=== PATIENT | female | born 1990 | race Caucasian/White ===

== ENCOUNTER 2017-07-10 16:34 | Emergency (ER) | payer OTHER ==
[~2017-07-10] VITALS: Ht 175.3 cm; Wt 100.0 kg
[~2017-07-10 16:34] MED LIST: /METO25TAB PO; ABIL2TAB OR; ATIV2TAB PO; BACL10TA2 PO; BENGAY EXT; CELEXA PO; CLOM50TA2 PO; CONC18TA OR; DICL50TAB PO; GABA-282 PO; HYDR7.5T38 PO; LEVO200T4 PO; LYRI75CA PO; MULTCAP11 PO; NAPR500T OR; NUCY50TA PO; OMEP20CA3 PO; ORTHOTRICYCLINE PO; PERCOCET PO; PHENTERMINE OR; PRENTAB PO; PROZ10CA OR; PROZ10CA7 PO; PROZ20CA11 PO; PROZ40CA PO; SOMA350T PO; SYNT150T PO; TOPA25TA PO; TRAM50TA2 OR; VOLT1GEL EX; XANA0.5T PO; birth control pill PO
[2017-07-10 16:35] VITALS: BP 126/72
[2017-07-10] MEDS ORDERED: PRENTAB29 PO (16:44)
[2017-07-10] MEDS ORDERED: SUCR1TAB56 PO (16:44)
[2017-07-10] MEDS ORDERED: PANT40TA2 PO (16:44)
[2017-07-10] MEDS ORDERED: SERT-138 PO (16:44)
[2017-07-10] MEDS ORDERED: TRAZ50TA11 PO (16:44)
[2017-07-10] MEDS ORDERED: FERR1TAB8 PO (16:44)
[2017-07-10] MEDS ORDERED: LEVO175T2 PO (16:44)
[2017-07-10] MEDS ORDERED: BUSP10TA PO (16:44)
== END 2017-07-10 18:21 | disposition left against medical advice (07) ==
LOC: M ED 16:34
DX: R51 Headache (principal); Z53.21 Procedure and treatment not carried out due to patient leaving prior to being seen by health care provider

== ENCOUNTER → 2017-09-29 | Outpatient (CLI) | payer OTHER | LOC: M RAD 14:49 | DX: R51 Headache (principal); R42 Dizziness and giddiness; H53.9 Unspecified visual disturbance | CPT/HCPCS: 70551 ==

== ENCOUNTER 2017-10-10 21:27 | Emergency (ER) | payer OTHER ==
[2017-10-10] MEDS: NS 1,000 ML IV (23:04)
[2017-10-10] MEDS: diphenhydrAMINE INJ 50MG/ML VIAL (J1200) IV (23:04)
[2017-10-10] MEDS: METOCLOPRAMIDE INJ 10MG/2ML VIAL (J2765) IV (23:04)
[2017-10-10] MEDS: KETOROLAC 30 MG/ML VIAL (J1885) IV (23:04)
== END 2017-10-11 01:27 | disposition home or self-care (01) ==
LOC: M ED 10-11 01:27
DX: G43.909 Migraine, unspecified, not intractable, without status migrainosus (principal); E03.9 Hypothyroidism, unspecified; K21.9 Gastro-esophageal reflux disease without esophagitis; F43.12 Post-traumatic stress disorder, chronic; Z98.84 Bariatric surgery status
CPT/HCPCS: J1200

== ENCOUNTER 2019-07-27 20:01 | Emergency (ER) | payer BC, OTHER ==
[~2019-07-27] VITALS: Ht 172.7 cm; Wt 97.9 kg
[~2019-07-27 20:01] MED LIST changes: -/METO25TAB PO; +BUSP10TA PO; +FERR1TAB8 PO; -GABA-282 PO; +GABA-843 PO; +LEVO175T2 PO; +METO1TAB87 PO; +PANT40TA3 PO; +PRENTAB29 PO; +SERT-138 PO; +SUCR1TAB56 PO; +TOPA50TA8 PO; +TRAZ-252 PO
[2019-07-27 21:06] LABS: BASO # 0.1 10^3/uL (0.0-0.2); BASO % 0.7 % (0.0-1.0); EOS % 0.3 % (0.0-3.0); HEMATOCRIT 36.1 % (36.0-47.0); HEMOGLOBIN 10.1 g/dl (12.0-15.5); LYMPH # 0.4 10^3/uL (1.5-5.0); LYMPH % 5.2 % (24.0-44.0); MEAN CORPUSCULAR HEMOGLOBIN 20.7 pg (27.0-33.0); MONO % 0.4 % (0.0-5.0); NEUTROPHILS # 6.2 10^3/uL (1.5-8.5); PLATELET COUNT, AUTOMATED 257 10^3/uL (150-450); RED BLOOD COUNT 4.88 10^6/uL (4.00-5.40); WHITE BLOOD COUNT 6.7 10^3/uL (4.0-10.0)
[2019-07-27] MEDS ORDERED: NS 1,000 ML IV ONE (21:30)
[2019-07-27 21:31] LABS: BLOOD UREA NITROGEN 8 MG/DL (7-18); CALCIUM LEVEL 8.7 MG/DL (8.5-10.1); CARBON DIOXIDE LEVEL 19 MEQ/L (21-32); CHLORIDE LEVEL 114 MEQ/L (98-107); CREATININE FOR GFR 0.94 MG/DL (0.55-1.30); GLOMERULAR FILTRATION RATE > 60.0 (>60); GLUCOSE, FASTING 158 MG/DL (70-100); SODIUM LEVEL 141 MEQ/L (136-145)
[2019-07-27] MEDS ORDERED: diphenhydrAMINE INJ 50MG/ML VIAL (J1200) IV STA (22:10)
[2019-07-27] MEDS ORDERED: ONDANSETRON 4MG/2ML VIAL (J2405) IV ONE (22:15)
[2019-07-27] MEDS ORDERED: ACETAMINOPHEN 500 MG TAB PO ONE (22:15)
[2019-07-27] MEDS ORDERED: KETOROLAC 30 MG/ML VIAL (J1885) IV ONE (22:15)
[2019-07-27 23:15] VITALS: BP 120/69
[2019-07-27] MEDS ORDERED: HYDROMORPHONE HCL 0.5 MG/ 0.5 ML SYRINGE (J1170 PER 1) IV ONE (23:15)
== END 2019-07-27 23:40 | disposition home or self-care (01) ==
LOC: M ED 20:01
DX: G43.909 Migraine, unspecified, not intractable, without status migrainosus (principal); E03.9 Hypothyroidism, unspecified; K21.9 Gastro-esophageal reflux disease without esophagitis; J30.9 Allergic rhinitis, unspecified; Z98.84 Bariatric surgery status; Z87.891 Personal history of nicotine dependence; Z79.899 Other long term (current) drug therapy; Z88.8 Allergy status to other drugs, medicaments and biological substances; Z88.6 Allergy status to analgesic agent; Z88.5 Allergy status to narcotic agent
CPT/HCPCS: 80048; 85025; 86850; 86900; 86901; 96361; 96374; 96375; 99285; J1170; J1200; J1885; J2405

== ENCOUNTER 2019-11-12 13:00 | Emergency (ER) | payer BC ==
[~2019-11-12] VITALS: Ht 175.3 cm; Wt 104.3 kg
[2019-11-12] MEDS ORDERED: LEVO2TA (13:10)
[2019-11-12] MEDS ORDERED: HYDR-3363 (13:10)
[2019-11-12] MEDS ORDERED: ONDANSETRON 4MG/2ML VIAL (J2405) IV ONE ×2 (15:30)
[2019-11-12] MEDS ORDERED: ACETAMINOPHEN 500 MG TAB PO ONE (15:30)
[2019-11-12] MEDS ORDERED: HALOPERIDOL 5 MG/ML VIAL (J1630) IV ONE (15:30)
[2019-11-12 15:57] LABS: BASO # 0.1 10^3/uL (0.0-0.2); BASO % 0.9 % (0.0-1.0); EOS # 0.2 10^3/uL (0.0-0.5); EOS % 3.6 % (0.0-3.0); HEMATOCRIT 34.6 % (36.0-47.0); HEMOGLOBIN 10.9 g/dl (12.0-15.5); LYMPH # 1.8 10^3/uL (1.5-5.0); LYMPH % 31.3 % (24.0-44.0); MEAN CORPUSCULAR HEMOGLOBIN 25.8 pg (27.0-33.0); MEAN CORPUSCULAR HGB CONC 31.5 g/dl (32.0-36.5); MEAN CORPUSCULAR VOLUME 81.8 fl (80.0-96.0); MONO # 0.4 10^3/uL (0.0-0.8); MONO % 6.6 % (0.0-5.0); NEUTROPHILS # 3.3 10^3/uL (1.5-8.5); NEUTROPHILS % 57.4 % (36.0-66.0); PLATELET COUNT, AUTOMATED 304 10^3/uL (150-450); RED BLOOD COUNT 4.23 10^6/uL (4.00-5.40); WHITE BLOOD COUNT 5.8 10^3/uL (4.0-10.0)
[2019-11-12] MEDS ORDERED: NS 1,000 ML IV ONE (16:00)
[2019-11-12 16:21] LABS: BLOOD UREA NITROGEN 10 MG/DL (7-18); CALCIUM LEVEL 8.5 MG/DL (8.5-10.1); CARBON DIOXIDE LEVEL 27 MEQ/L (21-32); CHLORIDE LEVEL 110 MEQ/L (98-107); CREATININE FOR GFR 0.61 MG/DL (0.55-1.30); GLOMERULAR FILTRATION RATE > 60.0 (>60); GLUCOSE, FASTING 78 MG/DL (70-100); MAGNESIUM LEVEL 2.2 MG/DL (1.8-2.4); POTASSIUM SERUM 4.1 MEQ/L (3.5-5.1); SODIUM LEVEL 141 MEQ/L (136-145)
[2019-11-12 17:12] VITALS: BP 99/59
== END 2019-11-12 17:14 | disposition home or self-care (01) ==
LOC: M ED 13:00
DX: G43.909 Migraine, unspecified, not intractable, without status migrainosus (principal); D64.9 Anemia, unspecified; K21.9 Gastro-esophageal reflux disease without esophagitis; J45.909 Unspecified asthma, uncomplicated; F41.9 Anxiety disorder, unspecified; F33.1 Major depressive disorder, recurrent, moderate; F17.210 Nicotine dependence, cigarettes, uncomplicated; Z88.1 Allergy status to other antibiotic agents; Z88.5 Allergy status to narcotic agent; Z88.6 Allergy status to analgesic agent; Z79.899 Other long term (current) drug therapy
CPT/HCPCS: 80048; 83735; 85025; 96361; 96374; 96375; 99284; J1630; J2405

== ENCOUNTER → 2021-09-16 | Outpatient (CLI) | payer OTHER ==
[~2021-09-16] MED LIST changes: +BENA25CA4 PO; +GABA-282 PO; -GABA-843 PO; +HYDR-3363; +LEVO2TA PO; +LEXA1TAB2 PO; +OMEP-218 PO; +PANT40TA29 PO; -PANT40TA3 PO
[2021-09-16 13:03] LABS: FREE T4 1.06 NG/DL (0.76-1.46); THYROID STIMULATING HORMONE 1.42 uIU/ML (0.358-3.740)
== END ==
LOC: M LAB 12:04
PROVIDERS: ATTEND Nurse Practitioner Family
DX: E89.0 Postprocedural hypothyroidism (principal)

== ENCOUNTER → 2021-09-22 | Outpatient (REF) | LOC: M EMP 08:53 | PROVIDERS: ATTEND Family Medicine | DX: Z20.822 Contact with and (suspected) exposure to COVID-19 (principal) ==

== ENCOUNTER → 2021-12-22 | Outpatient (REF) | payer OTHER ==
[~2021-12-22] MED LIST changes: +OMEP-173 PO; -OMEP-218 PO
== END ==
LOC: M PLALAB 15:55
PROVIDERS: ATTEND Specialist
DX: Z53.9 Procedure and treatment not carried out, unspecified reason (principal)

== ENCOUNTER → 2021-12-22 | Outpatient (CLI) | payer OTHER ==
[2021-12-22 18:30] LABS: FREE T4 1.01 NG/DL (0.76-1.46); THYROID STIMULATING HORMONE 7.9 uIU/ML (0.358-3.740)
== END ==
LOC: M LAB 16:02
PROVIDERS: ATTEND Nurse Practitioner Family
DX: E89.0 Postprocedural hypothyroidism (principal)

== ENCOUNTER → 2021-12-22 | Outpatient (REF) | payer OTHER | LOC: M SFHCWAGY 18:40 | PROVIDERS: ATTEND Specialist | DX: Z12.4 Encounter for screening for malignant neoplasm of cervix (principal); R87.610 Atypical squamous cells of undetermined significance on cytologic smear of cervix (ASC-US) ==

== ENCOUNTER → 2022-06-09 | Outpatient (CLI) | payer OTHER ==
[~2022-06-09] MED LIST changes: +E-Z-GAS II EFFERVESCENT PACKET (SODIUM BICARB./CITRIC ACID/SIMETHICONE) As Ordered ONE; +E-Z-HD 98% w/w 340GM SUSP BTL As Ordered ONE; +E-Z-PAQUE 96% w/w SUSP 176GM BTL As Ordered ONE
[2022-06-09 09:55] LABS: HEMATOCRIT 32.6 % (36.0-47.0); HEMOGLOBIN 9.3 g/dl (12.0-15.5); MEAN CORPUSCULAR HEMOGLOBIN 19.9 pg (27.0-33.0); MEAN CORPUSCULAR HGB CONC 28.5 g/dl (32.0-36.5); MEAN CORPUSCULAR VOLUME 69.8 fl (80.0-96.0); PLATELET COUNT, AUTOMATED 236 10^3/uL (150-450); RED BLOOD COUNT 4.67 10^6/uL (4.00-5.40); WHITE BLOOD COUNT 5.8 10^3/uL (4.0-10.0)
[2022-06-09 10:47] LABS: ALBUMIN 3.8 GM/DL (3.2-5.2); ALT/SGPT 30 U/L (12-78); BILIRUBIN,DIRECT < 0.1 MG/DL (0.0-0.2); BILIRUBIN,TOTAL 0.3 MG/DL (0.2-1.0); CHOLESTEROL LEVEL 157 MG/DL (<200); CHOLESTEROL RISK RATIO 3.204 (<5); FERRITIN 3 NG/ML (8-252); HDL CHOLESTEROL 49 MG/DL (>40); IRON (FE) 15 UG/DL (50-170); LDL CHOLESTEROL 80 MG/DL (<100); MAGNESIUM LEVEL 2.1 MG/DL (1.8-2.4); NON-HDL-C 108 MG/DL; PERCENT SATURATION 3.2 % (13.2-45.0); THYROID STIMULATING HORMONE 0.134 uIU/ML (0.358-3.740); TOTAL IRON BINDING CAPACITY 473 UG/DL (250-450); TOTAL PROTEIN 7.5 GM/DL (6.4-8.2); TRIGLYCERIDES LEVEL 142 MG/DL (<150)
[2022-06-09 11:45] LABS: TOTAL 25(OH) VITAMIN D 22.8 NG/ML (30.0-100.0); VITAMIN B12 LEVEL 574 PG/ML (247-911)
[2022-06-10 08:10] LABS: FOLATE 11.9 ng/mL (>3.0)
== END ==
LOC: M RAD 08:44
PROVIDERS: ATTEND Surgery
DX: R63.5 Abnormal weight gain (principal); Z98.84 Bariatric surgery status

== ENCOUNTER 2023-09-01 11:42 | Day surgery (SDC) | payer OTHER ==
[~2023-09-01] VITALS: Ht 175.3 cm; Wt 101.2 kg
[~2023-09-01 11:42] MED LIST changes: +BUSP5TA PO; +DOCU100C16 PO; -E-Z-GAS II EFFERVESCENT PACKET (SODIUM BICARB./CITRIC ACID/SIMETHICONE) As Ordered ONE; -E-Z-HD 98% w/w 340GM SUSP BTL As Ordered ONE; -E-Z-PAQUE 96% w/w SUSP 176GM BTL As Ordered ONE; +NS 1,000 ML IV ONE; +PHEN-239 PO; +TOPI-21 PO
[2023-09-01] MEDS ORDERED: propofoL 200 MG/20 ML VIAL As Ordered ONE (13:21)
[2023-09-01] MEDS ORDERED: LIDOCAINE 2% 100MG/5ML SDV (FOR ANES.) As Ordered ONE (13:21)
[2023-09-01] MEDS ORDERED: fentaNYL 100 MCG/2 ML INJECTION As Ordered ONE (13:21)
[2023-09-01 14:05] VITALS: BP 123/61; TEMP 96.7; O2SAT 98
== END 2023-09-01 14:08 | disposition home or self-care (01) ==
LOC: M OPP 11:42
PROVIDERS: ATTEND Internal Medicine Gastroenterology
DX: K59.00 Constipation, unspecified (principal); D50.9 Iron deficiency anemia, unspecified; Z98.84 Bariatric surgery status; F17.200 Nicotine dependence, unspecified, uncomplicated; Z79.83 Long term (current) use of bisphosphonates; Z79.890 Hormone replacement therapy; Z79.899 Other long term (current) drug therapy; Z88.1 Allergy status to other antibiotic agents; Z88.5 Allergy status to narcotic agent; Z88.6 Allergy status to analgesic agent; Z88.8 Allergy status to other drugs, medicaments and biological substances
CPT/HCPCS: 43239; 45378; 88305; J3010

== ENCOUNTER → 2023-11-25 | Outpatient (CLI) | payer OTHER ==
[~2023-11-25] MED LIST changes: +FERR325T3 PO; -NS 1,000 ML IV ONE
[2023-11-25 17:36] LABS: BASO # 0.1 10^3/uL (0.0-0.2); EOS # 0.1 10^3/uL (0.0-0.5); EOS % 2.4 % (0.0-3.0); HEMATOCRIT 26.3 % (36.0-47.0); LYMPH # 2.3 10^3/uL (1.5-5.0); LYMPH % 40.4 % (24.0-44.0); MEAN CORPUSCULAR HEMOGLOBIN 17.3 pg (27.0-33.0); MEAN CORPUSCULAR HGB CONC 26.6 g/dl (32.0-36.5); MEAN CORPUSCULAR VOLUME 65.1 fl (80.0-96.0); MONO # 0.4 10^3/uL (0.0-0.8); MONO % 7.6 % (2.0-8.0); NEUTROPHILS # 2.8 10^3/uL (1.5-8.5); NEUTROPHILS % 48.4 % (36.0-66.0); PLATELET COUNT, AUTOMATED 171 10^3/uL (150-450); RED BLOOD COUNT 4.04 10^6/uL (4.00-5.40); WHITE BLOOD COUNT 5.8 10^3/uL (4.0-10.0)
[2023-11-25 18:06] LABS: FERRITIN 2.7 NG/ML (7.3-270.7); IRON (FE) 8 UG/DL (50-170); PERCENT SATURATION 2.1 % (13.2-45.0); TOTAL 25(OH) VITAMIN D 18.4 NG/ML (20.0-100.0); TOTAL IRON BINDING CAPACITY 389 UG/DL (250-425)
[2023-11-25 18:07] LABS: ALBUMIN 3.7 G/DL (3.2-5.2); ALKALINE PHOSPHATASE 68 U/L (46-116); ALT/SGPT 9 U/L (7.0-40); AST/SGOT < 8 U/L (<34); BILIRUBIN,TOTAL 0.2 MG/DL (0.3-1.2); BLOOD UREA NITROGEN 8 MG/DL (9-23); CALCIUM LEVEL 8.1 MG/DL (8.5-10.1); CARBON DIOXIDE LEVEL 24 MMOL/L (20-31); CHLORIDE LEVEL 112 MMOL/L (98-107); CREATININE FOR GFR 0.79 MG/DL (0.55-1.30); FOLATE 18.59 NG/ML (>5.4); GLOMERULAR FILTRATION RATE > 60.0 (>60); GLUCOSE, FASTING 86 MG/DL (60-100); POTASSIUM SERUM 3.9 MMOL/L (3.5-5.1); SODIUM LEVEL 141 MMOL/L (136-145); TOTAL PROTEIN 6.6 G/DL (5.7-8.2)
[2023-11-25 18:09] LABS: VITAMIN B12 LEVEL 575 PG/ML (211-911)
== END ==
LOC: M LAB 16:55
PROVIDERS: ATTEND Internal Medicine Medical Oncology
DX: D50.9 Iron deficiency anemia, unspecified (principal)

== ENCOUNTER 2023-12-15 13:41 | Outpatient (CLI) | payer OTHER ==
[~2023-12-15] VITALS: Ht 175.3 cm; Wt 103.1 kg
[2023-12-15 14:00] VITALS: BP 114/59; O2SAT 99
[2023-12-15] MEDS ORDERED: dexAMETHasone 20MG/5ML VIAL IV ONE (14:00)
[2023-12-15] MEDS: diphenhydrAMINE 25MG CAP PO ONE (14:02)
[2023-12-15] MEDS: ACETAMINOPHEN TAB 650MG DOSE (2X325MG) PO ONE (14:02)
[2023-12-15] MEDS: IRON SUCROSE 300 MG in NS 250 ML OVER 90 MIN. IV ONE (14:07)
[2023-12-15 15:52] VITALS: BP 122/68; O2SAT 100
== END 2023-12-15 15:55 ==
LOC: M INFU 13:41
PROVIDERS: ATTEND Internal Medicine Medical Oncology
DX: D50.9 Iron deficiency anemia, unspecified (principal); Z88.1 Allergy status to other antibiotic agents; Z88.5 Allergy status to narcotic agent; Z88.6 Allergy status to analgesic agent; Z88.8 Allergy status to other drugs, medicaments and biological substances
CPT/HCPCS: 96365; J1756

== ENCOUNTER 2023-12-22 14:00 | Outpatient (CLI) | payer OTHER ==
[~2023-12-22] VITALS: Ht 175.3 cm; Wt 103.0 kg
[2023-12-22 14:00] VITALS: BP 128/66; O2SAT 99
[~2023-12-22 14:00] MED LIST changes: +ACETAMINOPHEN TAB 650MG DOSE (2X325MG) PO ONE; +dexAMETHasone 20MG/5ML VIAL IV ONE; +diphenhydrAMINE 25MG CAP PO ONE
[2023-12-22] MEDS: IRON SUCROSE 300 MG in NS 250 ML OVER 90 MIN. IV ONE (14:11)
[2023-12-22 15:52] VITALS: BP 135/73; O2SAT 100
== END 2023-12-22 15:55 ==
LOC: M INFU 14:00
PROVIDERS: ATTEND Internal Medicine Medical Oncology
DX: D50.9 Iron deficiency anemia, unspecified (principal); Z88.1 Allergy status to other antibiotic agents; Z88.5 Allergy status to narcotic agent; Z88.6 Allergy status to analgesic agent; Z88.8 Allergy status to other drugs, medicaments and biological substances
CPT/HCPCS: 96365; 96366; J1756

== ENCOUNTER 2025-06-25 06:02 | Observation (INO) | payer BC ==
[2025-06-25] VITALS (7 sets, daily range): BP systolic 95–106; BP diastolic 56–63; TEMP 97.2–98.8; O2SAT 95–98
[~2025-06-25] VITALS: Ht 175.3 cm; Wt 83.1 kg
[~2025-06-25 06:02] MED LIST changes: -ACETAMINOPHEN TAB 650MG DOSE (2X325MG) PO ONE; +CYCL5TAB4 PO; +FLUO40CA PO; +GABA-1172 PO; -GABA-282 PO; +OMEP40CA4 PO; -PHEN-239 PO; +PHEN37.511 PO; -PROZ20CA11 PO; +PROZ20CA12 PO; +SYNT175T2 PO; +TIRZ10PE3 SQ; -dexAMETHasone 20MG/5ML VIAL IV ONE; -diphenhydrAMINE 25MG CAP PO ONE
[2025-06-25] MEDS: LR 1,000 ML IV SCH ×2 (06:51→15:22)
[2025-06-25] MEDS: SCOPOLAMINE 1MG TRANSDERMAL PATCH TOP ONE (07:15)
[2025-06-25] MEDS ORDERED: LIDOCAINE 2% 100 MG/5 ML SDV (FOR ANES.) As Ordered ONE (07:20)
[2025-06-25] MEDS ORDERED: ONDANSETRON 4MG 2ML VIAL As Ordered ONE (07:20)
[2025-06-25] MEDS ORDERED: ROCURONIUM BROMIDE 50MG/5ML VIAL As Ordered ONE (07:20)
[2025-06-25] MEDS ORDERED: dexAMETHasone 4 MG/ML 1 ML VIAL As Ordered ONE (07:20)
[2025-06-25] MEDS ORDERED: dexmedeTOMIDine (4 MCG/ML) 200 MCG/50 ML BTL As Ordered ONE (07:21)
[2025-06-25] MEDS ORDERED: MIDAZOLAM INJ 2 MG/2 ML VIAL As Ordered ONE (07:21)
[2025-06-25] MEDS: HEPARIN SOD 5000 UNITS/ML 1 ML VIAL/SYRINGE SQ ONE (07:55)
[2025-06-25] MEDS ORDERED: LACRILUBE (AKWA TEARS) OPHTH OINT 3.5 GM As Ordered ONE (07:58)
[2025-06-25] MEDS: CLINDAMYCIN 900 MG in IV 1 EA IV ONE ×2 (08:04→14:19)
[2025-06-25] MEDS ORDERED: ACETAMINOPHEN 1000MG/100ML IV BAG As Ordered ONE (08:38)
[2025-06-25] MEDS ORDERED: SUGAMMADEX SODIUM 200 MG/2 ML VIAL As Ordered ONE (08:50)
[2025-06-25] MEDS ORDERED: PHENYLephrine 500MCG 5ML (100MCG/ML) SYRINGE As Ordered ONE (09:10)
[2025-06-25] MEDS ORDERED: HYDROmorphone HCL 2 MG/ML 1 ML VIAL As Ordered ONE (09:22)
[2025-06-25] MEDS: GENTAMICIN SULF 80 MG/2 ML VIAL As Ordered ONE (10:24)
[2025-06-25] MEDS ORDERED: HYDROMORPHONE HCL 0.5 MG/0.5 ML SYRINGE IV PRN (11:05)
[2025-06-25] MEDS ORDERED: ONDANSETRON 4MG 2ML VIAL IV PRN (11:05)
[2025-06-25] MEDS ORDERED: PERCOCET 5MG/325MG TAB PO PRN (11:40)
[2025-06-25] MEDS ORDERED: HOME MED LIST COMPLETE! XX SCH (15:10)
[2025-06-25] MEDS: traMADol 50 MG TAB PO PRN (15:23)
[2025-06-25] MEDS: ONDANSETRON 4MG 2ML VIAL IV PRN (20:08)
[2025-06-25] MEDS: TOPIRAMATE 25 MG TAB PO SCH (21:54)
[2025-06-26 00:36] VITALS: BP 95/62; TEMP 98.1; O2SAT 97
[2025-06-26 04:57] VITALS: BP 96/61; TEMP 97.7; O2SAT 95
[2025-06-26] MEDS: LEVOTHYROXINE 150 MCG TABLET (0.15 MG) PO SCH (06:29)
[2025-06-26] MEDS: ACETAMINOPHEN 325 MG TAB PO PRN (06:29)
[2025-06-26 06:36] LABS: PLATELET COUNT, AUTOMATED 249 10^3/uL (150-450)
[2025-06-26 07:13] LABS: CALCIUM LEVEL 8.2 MG/DL (8.5-10.1); CARBON DIOXIDE LEVEL 24 MMOL/L (20-31); CHLORIDE LEVEL 110 MMOL/L (98-107); CREATININE FOR GFR 0.72 MG/DL (0.55-1.30); GLOMERULAR FILTRATION RATE > 90.0 (>60); POTASSIUM SERUM 4.0 MMOL/L (3.5-5.1); SODIUM LEVEL 144 MMOL/L (136-145)
[2025-06-26] MEDS: OMEPRAZOLE 20MG CAP PO SCH (08:20)
[2025-06-26] MEDS: FLUoxetine 20 MG CAP PO SCH (08:20)
[2025-06-26] MEDS ORDERED: PERCOCET 5MG/325MG TAB PO PRN (08:25)
[2025-06-26] MEDS: PERCOCET 5MG/325MG TAB PO PRN (10:23)
[2025-06-26] MEDS ORDERED: PERCOCET PO (11:34)
== END 2025-06-26 13:15 | disposition home or self-care (01) ==
LOC: M SDC 06:02 → M MS5PR 06:03
PROVIDERS: ADMIT Plastic Surgery Surgery of the Hand; ATTEND Plastic Surgery Surgery of the Hand
DX: M54.07 Panniculitis affecting regions of neck and back, lumbosacral region (principal); L98.7 Excessive and redundant skin and subcutaneous tissue; L90.5 Scar conditions and fibrosis of skin; J30.2 Other seasonal allergic rhinitis; Z88.8 Allergy status to other drugs, medicaments and biological substances; Z88.5 Allergy status to narcotic agent; Z98.84 Bariatric surgery status
CPT/HCPCS: 11406; 15830; 15847; 36415; 80048; 81025; 85027; 88300; 96361; 96365; 96375; J0131; J0665; J0666; J0737; J1100; J1171; J1580; J2250; J2371; J2405; J3010